=== PATIENT | female | born 1935 | race Caucasian/White ===

== ENCOUNTER 2018-09-24 10:15 | Inpatient (IN) | payer OTHER, BC ==
--- NOTE | 2018-09-24 07:40 | HP ---
Satellite [facility] - Chief Complaint Chief Complaint: left hip pain s/p gamma nail - Past Medical History Allergies/Adverse Reactions: Allergies Allergy/AdvReac Type Severity Reaction Status Date / Time Penicillins Allergy Verified 09/20/18 12:23 - Current Medications Current Medications: Home Medications Medication Instructions Recorded Cholecalciferol (Vitamin D3) 2,000 unit PO DAILY 10/05/11 [Vitamin D3] Citalopram Hydrobromide 20 mg PO DAILY 10/05/11 [Citalopram HBr] Simvastatin [Zocor] 40 mg PO HS 10/05/11 Docusate Sodium [Colace] 100 mg PO HS 09/20/18 Folic Acid 1 mg PO DAILY 09/20/18 Hydrocodone-Acetamin 5-325 mg 1 tab PO PRN PRN 09/20/18 Iomeprazole 1 each PO BID 09/20/18 Zolpidem Tartrate [Ambien] 5 mg PO HS 09/20/18 Satellite Physical Exam - Physical Examination General Appearance: Well Nourished, Well Developed, Alert & Oriented x3 ENT: Clear Lung: Normal air movement Heart: Regular rate & rhythm Extremities: Other (left hip- well healed surgical scar, + ttp, decr rom, nvi xray show failed gamma nail) Neurological: Intact, Alert, Oriented Satellite Impression/Plan - Impression/Plan Impression: left hip failed gamma nail Operative Procedure: left hip removal of hardware with courtney vs THR Date to be Performed: 09/24/18
[2018-09-24] MEDS ORDERED: CELECOXIB 200 MG CAPSULE PO ONE (10:45)
[2018-09-24] MEDS ORDERED: GABAPENTIN 300 MG CAPSULE (FP) PO ONE (10:45)
[2018-09-24] MEDS ORDERED: TRANEXAMIC ACID 1000 MG/10 ML VIAL IVPUSH ONE (10:45)
[2018-09-24] MEDS ORDERED: CEFAZOLIN 2 GM in DEXTROSE 5%-WATER - 50 ML IVPB ONE (10:45)
[2018-09-24 11:16] VITALS: BMI 30.9
[2018-09-24] MEDS ORDERED: ceFAZolin SODIUM 1 GM VIAL ONE ×3 (11:37→13:36)
[2018-09-24] MEDS ORDERED: VANCOMYCIN 1,000 MG VIAL (RESTRICTED TO ID ONLY) ONE (11:37)
[2018-09-24] MEDS ORDERED: MIDAZOLAM HCL 2 MG/2 ML SINGLE DOSE VIAL ONE (12:22)
[2018-09-24] MEDS ORDERED: LIDOCAINE 1% P/F 10 MG/ML VIAL ONE (12:22)
[2018-09-24] MEDS ORDERED: DEXAMETHASONE SOD PHOSPHATE/PF 10 MG/ML SDV ONE (12:22)
[2018-09-24] MEDS ORDERED: BUPIVACAINE HCL/PF (5 MG/ML) 30 ML VIAL IJ ONE (12:23)
[2018-09-24] MEDS ORDERED: MAGNESIUM HYDROX 2400MG/30ML ORAL SUSPENSION 30 ML CUP PO PRN (12:52)
[2018-09-24] MEDS ORDERED: MAG HYDROX/AL HYDROX/SIMETH 30 ML UNIT-DOSE CUP PO PRN (12:52)
[2018-09-24] MEDS ORDERED: LACTATED RINGERS SOLUTION 1,000 ML IV SCH (13:00)
[2018-09-24] MEDS ORDERED: SUCCINYLCHOLINE CHLORIDE 200 MG/10 ML VIAL ONE (13:17)
[2018-09-24] MEDS ORDERED: PROPOFOL 20 ML ONE (13:17)
[2018-09-24] MEDS ORDERED: ESMOLOL HCL 100,000 MCG/10 ML VIAL ONE (14:38)
[2018-09-24] MEDS ORDERED: oxyCODONE HCL 5 MG TABLET PO PRN (14:44)
[2018-09-24] MEDS ORDERED: ONDANSETRON 4 MG/2 ML VIAL IVPUSH PRN (14:44)
[2018-09-24] MEDS ORDERED: VANCOMYCIN 1,000 MG VIAL (RESTRICTED TO ID ONLY) IVPB ONE (15:05)
--- NOTE | 2018-09-24 15:41 | OP ---
Operative Note - Note: Operative Date: 09/24/18 (natalio) Pre-Operative Diagnosis: right hip failed gamma nail, nonunion Operation: right hip removal of gamma nail, conversion to makoplasty THR Post-Operative Diagnosis: Same as Pre-op Surgeon: Oskar Herrmann Statement Processor: Geovani Jose Anesthesiologist/EDGE GRINDER MACHINE: Andrea García Anesthesia: Spinal, Local Specimens Removed: femoral head, gamma nail with screws (3) Estimated Blood Loss (mls): 300 Operative Report Dictated: Yes
--- NOTE | 2018-09-24 16:00 | PN ---
Progress Note (short form) - Note Progress Note: Pt noted to have sinus arrythmia with PACs intraop and in PACU. Pt denies CP/SOB /palpitations. Otherwise hemodynamically stable. Discussed with Dr. Herrmann. Decision made to place patient on telemetry for monitoring and consult hospitalist service.
[2018-09-24] MEDS: ACETAMINOPHEN 325 MG TABLET (FP) PO SCH (18:09)
[2018-09-24] MEDS: oxyCODONE HCL 5 MG TABLET PO PRN (20:30)
--- NOTE | 2018-09-24 20:34 | OP ---
DATE OF OPERATION: 09/24/2018 PREOPERATIVE DIAGNOSIS: Nonunion left intertrochanteric hip fracture with cutout of lag screw into the acetabulum. POSTOPERATIVE DIAGNOSIS: Nonunion left intertrochanteric hip fracture with cutout of lag screw into the acetabulum. PROCEDURE: Removal of gamma nail and conversion to a left total hip replacement with robotic-assisted navigation (MAKOplasty). SURGICAL ATTENDING: Oskar Herrmann MD [employer] REPAIRER: RONNIE Ruth ANESTHESIA: Spinal and general. CLOSURE: [facility] modular Jessy femoral hip system with 195 x 17-mm stem, a +10 body, a +3 MDM femoral head, a Trident II 48-mm press-fit acetabulum. Number 1 Vicryl fascia, 0 and 2-0 subcutaneous, 3-0 V-Loc to the skin, 4-0 undyed Vicryl for the pin sites. ESTIMATED BLOOD LOSS: Approximately 200 mL COMPLICATIONS: None. CONDITION: Stable condition. DESCRIPTION OF PROCEDURE: Patient was taken to the operating room on September 24, 2018. Spinal anesthesia as well as IV sedation was administered by the anesthesiologist. IV Kefzol and TXA were administered prophylactically prior to the case. The patient was placed in the lateral decubitus position with all prominences well padded. The left hip area was prepped and draped in the usual sterile fashion. At the onset, we did not know if we were going to do a hemiarthroplasty or total hip replacement. We were going to make that decision intraoperatively based on the status of the acetabulum. First, a posterolateral approach to the hip was used. A 12-cm curved longitudinal incision to the posterior aspect of the greater trochanter was incised. Hemostasis was achieved using Bovie cautery. Sharp dissection was carried down to the level of the fascia, which resulted the entire length of the incision, spreading the fibers in the direction of origin. A Charnley retractor was placed and care was taken not to impair the sciatic nerve. A small stab incision was made over the distal locking screw of the gamma nail. That screw was removed. The tip of the prudence was easily found. The set screw was unlocked from above. The lag screw was then removed from below. Then the prudence was pulled out from above. Subperiosteal dissection was then made in the posterior aspect of the hip until the hip capsule was encountered. We stayed along the bone. The greater trochanter needed to be rongeured away to gain access where it had overgrown from the fracture. The capsule was opened. Subperiosteal dissection was done until we entered the nonunion that was present at the intertrochanteric region. All bone in this region was debrided. A corkscrew was used to deliver the head out of the acetabulum. We preserved as much of the greater trochanter that was attached. The displaced portion was retracted anteriorly, aiding access to the acetabulum. Anterior and posterior retractors were placed around the acetabulum and a thorough inspection of the acetabulum was performed. This revealed a large gouge in the superior aspect of the acetabulum, through articular cartilage, into the bone. Also centrally there was erosion as well. This necessitated then replacing the acetabulum as well. At this time, 3 stab incisions were made over the iliac crest and 3 pins were applied. The SHAYE array was applied and clamped into place. The checkpoint was malleted into the pelvis superior to the acetabulum. Circumferential debridement of the labrum was performed exposing the rim of the acetabulum. The acetabulum was then registered with the navigation device with multiple points in and around the acetabulum and confirmed adequate and excellent registration was performed by "popping the bubbles." The plan was for a 48-mm acetabulum as per the SHAYE protocol. The reamer was brought into the field and the hip was reamed to the depth using the 48-mm reamer. Excellent bleeding surface of bone was obtained. A Trident II 48 acetabular shell was then malleted into place with the appropriate orientation and version as directed by the navigation device and excellent fixation was obtained. An MDM metallic liner was then cold-welded into the acetabulum. Next, our attention was directed to the femur. The femoral shaft was prepared first by using an intramedullary reamer, which went up to 17 mm until chatter was obtained distally with the line being at approximately the tip of the greater trochanter. A 17 stem was then malleted into place to achieve good rigid fixation in the intramedullary canal. A trial reduction with a +1- body with appropriate version and +3 MDM head achieved equal limb lengths with stable to marked flexion at 90 degrees of flexion, which was stable to marked adduction and internal rotation with a positive hang test, negative telescoping, and good stability with external rotation. The trial component was then removed. The real +10 body was then cold-welded and screwed with the locking screw with the appropriate version being applied. The +3 MDM head was then cold-welded to the trunnion and the hip was reduced. Range of motion, stability, and limb lengths were as described earlier. The joint was thoroughly irrigated with antibiotic irrigation. Vancomycin powder was then applied into the hip joint. The greater trochanter and adductors were repaired to the remaining greater trochanter by the use of FiberWire suture through drill holes in the greater trochanter. Thee fascia was then closed using number 1 Vicryl interrupted suture, 0 and 2-0 subcutaneous, and yoli to the skin. The check points were removed inside the acetabulum as well as the pins in the iliac crest. They were pulse antibiotic irrigated and closed with 4-0 undyed Vicryl. Sterile Aquacel dressing was then applied. The patient was placed in the supine position. X-rays revealed excellent position of the components. Patient was awakened from anesthesia and transferred to the recovery room in stable condition. COMPLICATIONS: None. ESTIMATED BLOOD LOSS: Approximately 200 mL Dia [id number]
[2018-09-24] MEDS: CEFAZOLIN 2 GM/D5W 2 GM/50 ML ML IVPB SCH (21:30)
[2018-09-24] MEDS: ZOLPIDEM TARTRATE 5 MG TABLET PO PRN (21:32)
[2018-09-24] MEDS: ATORVASTATIN CA 20 MG TABLET (FP) PO SCH (21:32)
[2018-09-24] MEDS: SENNOSIDES/DOCUSATE COMBO (SENNA PLUS) TABLET (UD) PO SCH (21:32)
[2018-09-24] MEDS: CITALOPRAM HYDROBROMIDE 20 MG TABLET (FP) PO SCH (21:32)
[2018-09-24] MEDS ORDERED: DOCUSATE SODIUM 100 MG CAPSULE (FP) PO SCH (22:00)
[2018-09-24] MEDS ORDERED: PATIENT'S OWN MEDICATION (NON-FORMULARY) (Simvastatin [Zocor] 40 MG) PO SCH (22:00)
[2018-09-25] MEDS: ACETAMINOPHEN 325 MG TABLET (FP) PO SCH ×5 (05:17→23:16)
[2018-09-25] MEDS: CEFAZOLIN 2 GM/D5W 2 GM/50 ML ML IVPB SCH (05:18)
[2018-09-25] MEDS: oxyCODONE HCL 5 MG TABLET PO PRN ×3 (05:18→09:40)
[2018-09-25 07:09] LABS: HEMOGLOBIN 10.4 GM/dl (10.7-15.3); MCH 28.5 pg (25.7-33.7); MCHC 32.3 g/dl (32.0-36.0); MEAN CELL VOLUME 88.1 fl (80-96); MEAN PLT VOLUME 7.8 fl (7.5-11.1); PLATELET COUNT 172 K/MM3 (134-434); RBC 3.64 M/mm3 (3.60-5.2); WHITE BLOOD COUNT 13.5 K/mm3 (4.0-10.8)
[2018-09-25] MEDS: ASPIRIN 325 MG TABLET PO SCH (08:33)
--- NOTE | 2018-09-25 08:54 | PN ---
Progress Note (short form) - Note Progress Note: Ortho Pt seen and examined s/p left hip removal of gamma, conversion to THR pod #1 Selected Entries 09/25/18 08:06 Temperature 98.0 F Pulse Rate 74 Respiratory 18 Rate Blood Pressure 94/50 L Laboratory Tests 09/25/18 07:01 WBC 13.5 H Hgb 10.4 L MCV 88.1 Plt Count 172 dressing c/d/i, calf soft,nt nvi a/p PT hip precautions dvt ppx pain control d/c planning to rehab
--- NOTE | 2018-09-25 09:14 | CONSULT ---
Consultation: REQUESTING PROVIDER: Dr. Oskar Herrmann PCP: Alok Armendariz [place] CONSULT REQUEST: We have been asked to medically evaluate this patient post- operatively. HISTORY OF PRESENT ILLNESS: 83 year-old female with a PMH significant for HTN, HLD, Type II NIDDM, subclinical hyperthyroidism, postoperative anemia, depression, left hip s/p failed gamma nail, nonunion s/p right hip removal of gamma nail, conversion to makoplasty total hip replacement. REVIEW OF SYSTEMS: CONSTITUTIONAL: Absent: fever, chills, diaphoresis, generalized weakness, malaise, loss of appetite, weight change HEENT: Absent: rhinorrhea, nasal congestion, throat pain, throat swelling, difficulty swallowing, mouth swelling, ear pain, eye pain, visual changes CARDIOVASCULAR: Absent: chest pain, syncope, palpitations, irregular heart rate, lightheadedness , peripheral edema RESPIRATORY: Absent: cough, shortness of breath, dyspnea with exertion, orthopnea, wheezing, stridor, hemoptysis GASTROINTESTINAL: Absent: abdominal pain, abdominal distension, nausea, vomiting, diarrhea, constipation, melena, hematochezia GENITOURINARY: Absent: dysuria, frequency, urgency, hesitancy, hematuria, flank pain, genital pain MUSCULOSKELETAL: Absent: myalgia, arthralgia, joint swelling, back pain, neck pain SKIN: Absent: rash, itching, pallor HEMATOLOGIC/IMMUNOLOGIC: Absent: easy bleeding, easy bruising, lymphadenopathy, frequent infections ENDOCRINE: Absent: unexplained weight gain, unexplained weight loss, heat intolerance, cold intolerance NEUROLOGIC: Absent: headache, focal weakness or paresthesias, dizziness, unsteady gait, seizure, mental status changes, bladder or bowel incontinence PSYCHIATRIC: Absent: anxiety, depression, suicidal or homicidal ideation, hallucinations. PHYSICAL EXAMINATION Vital Signs - 24 hr 09/24/18 09/24/18 09/24/18 10:48 15:52 15:55 Temperature 98.6 F 97.8 F 97.8 F Pulse Rate 79 93 H 91 H Respiratory 18 14 14 Rate Blood Pressure 135/65 91/42 L 110/47 L O2 Sat by Pulse 99 99 Oximetry (%) 09/25/18 09/25/18 06:26 08:06 Temperature 98.0 F Pulse Rate 74 Respiratory 18 Rate Blood Pressure 94/50 L O2 Sat by Pulse 97 99 Oximetry (%) SUBJECTIVE: Feels weak, dizzy when she stands. Unable to fully participate in physical therapy. GENERAL: Awake, alert, and fully oriented, in no acute distress. HEAD: Normal with no signs of trauma. EYES: Pupils equal, round and reactive to light, extraocular movements intact, sclera anicteric, conjunctiva clear. No lid lag. EARS, NOSE, THROAT: Ears normal, nares patent, oropharynx clear without exudates. Moist mucous membranes. NECK: Normal range of motion, supple without lymphadenopathy, JVD, or masses. LUNGS: Breath sounds equal, clear to auscultation bilaterally. No wheezes, and no crackles. No accessory muscle use. HEART: Regular rate and rhythm, normal S1 and S2 without murmur, rub or gallop. ABDOMEN: Soft, nontender, not distended, normoactive bowel sounds, no guarding, no rebound, no masses. No hepatomegaly or splenomegaly. UPPER EXTREMITIES: 2+ pulses, warm, well-perfused. No cyanosis. No clubbing. Cap refill <2 seconds. No peripheral edema. LOWER EXTREMITIES: 2+ pulses, warm, well-perfused. No calf tenderness. No peripheral edema. Left hip surgical dressing c/d/i. No surrounding erythema, warmth, fluctuance. NEUROLOGICAL: Cranial nerves II-XII intact. Normal speech. Laboratory Results - last 24 hr 09/25/18 07:01 WBC 13.5 H RBC 3.64 Hgb 10.4 L Hct 32.0 L D MCV 88.1 MCH 28.5 MCHC 32.3 RDW 13.0 Plt Count 172 MPV 7.8 Active Medications Generic Name Dose Route Start Last Admin Trade Name Freq PRN Reason Stop Dose Admin Acetaminophen 650 mg 09/24/18 18:00 09/25/18 05:17 Tylenol - PO 09/27/18 17:59 650 mg Q6H MADY Administration Al Hydroxide/Mg Hydroxide 30 ml 09/24/18 12:52 Mylanta Oral Suspension - PO Q4H PRN DYSPEPSIA Aspirin 325 mg 09/25/18 08:00 Asa - PO DAILY@0800 [facility] Atorvastatin Calcium 20 mg 09/24/18 22:00 09/24/18 21:32 Lipitor - PO 20 mg HS MADY Administration Citalopram Hydrobromide 20 mg 09/24/18 22:00 09/24/18 21:32 Celexa - PO 20 mg HS MADY Administration Folic Acid 1 mg 09/25/18 10:00 Folic Acid - PO DAILY [facility] Magnesium Hydroxide 30 ml 09/24/18 12:52 Milk Of Magnesia - PO PRN PRN CONSTIPATION Multivitamins/Minerals/Vitamin C 1 tab 09/25/18 10:00 Tab-A-Vit - PO DAILY [facility] Ondansetron HCl 4 mg 09/24/18 14:44 Zofran Injection IVPUSH Q6H PRN NAUSEA AND/OR VOMITING Oxycodone HCl 5 mg 09/24/18 14:44 09/25/18 05:18 Roxicodone - PO 5 mg Q3H PRN Administration PAIN LEVEL 1-5 Oxycodone HCl 7.5 mg 09/24/18 14:44 Roxicodone - PO Q3H PRN PAIN LEVEL 6-10 Pantoprazole Sodium 40 mg 09/25/18 10:00 Protonix - PO DAILY [facility] Senna/Docusate Sodium 2 tablet 09/24/18 22:00 09/24/18 21:32 Pericolace - PO 2 tablet BID MADY Administration Zolpidem Tartrate 5 mg 09/24/18 22:00 09/24/18 21:32 Ambien - PO 5 mg HS PRN Administration INSOMNIA Pre op ECG SR with PVCs @70bpm QTc 440 Hgb 12.8 BUN/Cr 23/0.8 not on cardiac meds not on anti-hypertensives OR EBL 300mL LR 1500mL ASSESSMENT/PLAN: 83 year-old female with a PMH significant for HTN, HLD, Type II NIDDM, subclinical hyperthyroidism, postoperative anemia, depression, left hip s/p failed gamma nail, nonunion s/p left hip removal of gamma nail, conversion to makoplasty total hip replacement. Left total hip replacement --removal of gamma nail and conversion to makoplasty total hip replacement --POD #1 --perioperative antibiotics complete --pain management per surgery --ASA 325mg BID --protonix --bowel regimen --incentive spirometry Weakness Anemia Hypotension --not attributable to acute blood loss, has had post-operative anemia in the past --hypotension did not improve with IV fluids --discussed with Dr. Herrmann, will transfuse one unit PRBC FEN Fluids: PO intake adequate Electrolytes: replete as indicated Nutrition: regular diet DVT prophylaxis: OOB, ambulation, SCDs, TEDs, ASA 325mg daily Physical therapy Dispo: We will continue to follow the patient. Thank you for this consultative opportunity. Visit type - Emergency Visit Emergency Visit: No - New Patient This patient is new to me today: Yes Date on this admission: 09/26/18 - Critical Care Critical Care patient: No
[2018-09-25] MEDS: SENNOSIDES/DOCUSATE COMBO (SENNA PLUS) TABLET (UD) PO SCH ×2 (10:15→21:29)
[2018-09-25] MEDS: FOLIC ACID 1 MG TABLET (FP) PO SCH (10:15)
[2018-09-25] MEDS: MULTIVITAMINS (DAILY MVI) TABLET (FP) PO SCH (10:15)
[2018-09-25] MEDS: PANTOPRAZOLE 40 MG TABLET (FP) PO SCH (10:15)
[2018-09-25] MEDS ORDERED: SODIUM CHLORIDE 250 ML IV STA (12:03)
--- NOTE | 2018-09-25 12:10 | PN ---
Progress Note, Physician Chief Complaint: s/p left total hip arthroplasty under spinal anesthesia post op day one History of Present Illness: pain control by peripheral nerve blocks - Current Medication List Current Medications: Active Medications Acetaminophen (Tylenol -) 650 mg PO Q6H MADY Stop: 09/27/18 17:59 Last Admin: 09/25/18 05:17 Dose: 650 mg Al Hydroxide/Mg Hydroxide (Mylanta Oral Suspension -) 30 ml PO Q4H PRN PRN Reason: DYSPEPSIA Aspirin (Asa -) 325 mg PO DAILY@0800 [facility] Last Admin: 09/25/18 08:33 Dose: 325 mg Atorvastatin Calcium (Lipitor -) 20 mg PO HS [facility] Last Admin: 09/24/18 21:32 Dose: 20 mg Citalopram Hydrobromide (Celexa -) 20 mg PO HS [facility] Last Admin: 09/24/18 21:32 Dose: 20 mg Folic Acid (Folic Acid -) 1 mg PO DAILY [facility] Last Admin: 09/25/18 10:15 Dose: 1 mg Sodium Chloride (Normal Saline -) 250 mls @ 250 mls/hr IV ASDIR STA Stop: 09/25/18 13:02 Sodium Chloride (Normal Saline -) 1,000 mls @ 100 mls/hr IV ASDIR MADY Stop: 09/25/18 22:14 Magnesium Hydroxide (Milk Of Magnesia -) 30 ml PO PRN PRN PRN Reason: CONSTIPATION Multivitamins/Minerals/Vitamin C (Tab-A-Vit -) 1 tab PO DAILY [facility] Last Admin: 09/25/18 10:15 Dose: 1 tab Ondansetron HCl (Zofran Injection) 4 mg IVPUSH Q6H PRN PRN Reason: NAUSEA AND/OR VOMITING Oxycodone HCl (Roxicodone -) 5 mg PO Q3H PRN PRN Reason: PAIN LEVEL 1-5 Last Admin: 09/25/18 09:40 Dose: 5 mg Pantoprazole Sodium (Protonix -) 40 mg PO DAILY [facility] Last Admin: 09/25/18 10:15 Dose: 40 mg Senna/Docusate Sodium (Pericolace -) 2 tablet PO BID [facility] Last Admin: 09/25/18 10:15 Dose: 2 tablet Zolpidem Tartrate (Ambien -) 5 mg PO HS PRN PRN Reason: INSOMNIA Last Admin: 09/24/18 21:32 Dose: 5 mg - Objective Vital Signs: Vital Signs Temperature 98.0 F 09/25/18 10:00 Pulse Rate 55 L 09/25/18 10:00 Respiratory Rate 20 09/25/18 10:00 Blood Pressure 104/43 L 09/25/18 10:00 O2 Sat by Pulse Oximetry (%) 99 09/25/18 08:06 Constitutional: Yes: Well Nourished, Mild Distress Cardiovascular: Yes: WNL Respiratory: Yes: WNL Gastrointestinal: Yes: WNL (feeling light headed) Labs: CBC, BMP 09/25/18 07:01 Assessment/Plan No anesthetic complications, feeling light headed, orthostatic check positive, will leave in the hands of the hospitalist to treat. otherwise dept of anesthesia will sign off care
[2018-09-25] MEDS ORDERED: SODIUM CHLORIDE 1,000 ML IV SCH (12:15)
--- NOTE | 2018-09-25 12:29 | EKG ---
Test Reason : Blood Pressure : / mmHG Vent. Rate : 078 BPM Atrial Rate : 078 BPM P-R Int : 146 ms QRS Dur : 108 ms QT Int : 388 ms P-R-T Axes : 083 -12 047 degrees QTc Int : 442 ms POOR DATA QUALITY, INTERPRETATION MAY BE ADVERSELY AFFECTED SINUS RHYTHM WITH OCCASIONAL PREMATURE VENTRICULAR COMPLEXES INCOMPLETE RIGHT BUNDLE BRANCH BLOCK POSSIBLE INFERIOR INFARCT (CITED ON OR BEFORE 20-SEP-2018) ABNORMAL ECG WHEN COMPARED WITH ECG OF 20-SEP-2018 12:48, NO SIGNIFICANT CHANGE WAS FOUND Confirmed by BOB BERRIOS MD ([id number]) on 09/25/2018 12:29:05 PM Referred By: Oskar Herrmann Confirmed By:BOB BERRIOS MD
[2018-09-25] MEDS ORDERED: SODIUM CHLORIDE 500 ML IV STA (14:58)
[2018-09-25 15:33] LABS: HEMATOCRIT 28.6 % (32.4-45.2); HEMOGLOBIN 9.3 GM/dl (10.7-15.3); MCHC 32.6 g/dl (32.0-36.0); MEAN PLT VOLUME 7.9 fl (7.5-11.1); PLATELET COUNT 133 K/MM3 (134-434); RBC 3.22 M/mm3 (3.60-5.2); RDW 13.2 % (11.6-15.6); WHITE BLOOD COUNT 11.3 K/mm3 (4.0-10.8)
[2018-09-25] MEDS: INSULIN SLIDING SCALE (NOVOLOG) 1 VIAL SQ SCH ×2 (16:52→23:09)
[2018-09-25] MEDS ORDERED: FUROSEMIDE 40 MG/4 ML INJECTABLE VIAL IVPUSH ONE (19:54)
[2018-09-25] MEDS: ATORVASTATIN CA 20 MG TABLET (FP) PO SCH (21:29)
[2018-09-25] MEDS: CITALOPRAM HYDROBROMIDE 20 MG TABLET (FP) PO SCH (21:29)
[2018-09-26] MEDS ORDERED: FUROSEMIDE 40 MG/4 ML INJECTABLE VIAL ONE (01:10)
[2018-09-26] MEDS: ZOLPIDEM TARTRATE 5 MG TABLET PO PRN ×2 (01:13→21:27)
[2018-09-26] MEDS: ACETAMINOPHEN 325 MG TABLET (FP) PO SCH ×3 (06:49→17:34)
[2018-09-26] MEDS: INSULIN SLIDING SCALE (NOVOLOG) 1 VIAL SQ SCH ×4 (06:52→21:25)
[2018-09-26 08:13] LABS: HEMATOCRIT 29.4 % (32.4-45.2); HEMOGLOBIN 10.2 GM/dl (10.7-15.3); MCH 30.8 pg (25.7-33.7); MCHC 34.7 g/dl (32.0-36.0); MEAN CELL VOLUME 88.8 fl (80-96); MEAN PLT VOLUME 8.4 fl (7.5-11.1); PLATELET COUNT 114 K/MM3 (134-434); RBC 3.31 M/mm3 (3.60-5.2); RDW 12.9 % (11.6-15.6); WHITE BLOOD COUNT 10.4 K/mm3 (4.0-10.8)
--- NOTE | 2018-09-26 08:38 | PN ---
Progress Note (short form) - Note Progress Note: Ortho Pt seen and examined s/p left hip removal of gamma, conversion to THR pod #2- received 1 unit prbcs last night, c/o fatigue Selected Entries 09/26/18 06:02 Temperature 98.3 F Pulse Rate 81 Respiratory 18 Rate Blood Pressure 120/50 L Laboratory Tests 09/26/18 07:20 WBC 10.4 Hgb 10.2 L Hct 29.4 L Plt Count 114 L dressing c/d/i, calf soft,nt nvi a/p f/u cbc cardio consult PT hip precautions dvt ppx pain control d/c planning to rehab
[2018-09-26] MEDS: PANTOPRAZOLE 40 MG TABLET (FP) PO SCH (09:50)
[2018-09-26] MEDS: ASPIRIN 325 MG TABLET PO SCH (09:50)
[2018-09-26] MEDS: SENNOSIDES/DOCUSATE COMBO (SENNA PLUS) TABLET (UD) PO SCH ×2 (09:50→21:26)
[2018-09-26] MEDS: FOLIC ACID 1 MG TABLET (FP) PO SCH (09:51)
[2018-09-26] MEDS: MULTIVITAMINS (DAILY MVI) TABLET (FP) PO SCH (09:51)
--- NOTE | 2018-09-26 09:53 | PN ---
Physical Exam: SUBJECTIVE: Patient seen and examined. Feels has more energy, pain well-managed. OBJECTIVE: Vital Signs Period Temp Pulse Resp BP Sys/Bundy Pulse Ox Last 24 Hr 98.0 F-98.9 F 55-92 18-20 86-131/37-59 95-99 GENERAL: Awake, alert, and fully oriented, in no acute distress. HEAD: Normal with no signs of trauma. LUNGS: Breath sounds equal, clear to auscultation bilaterally. No wheezes, and no crackles. No accessory muscle use. HEART: Regular rate and rhythm, normal S1 and S2 ABDOMEN: Soft, nontender, not distended UPPER EXTREMITIES: 2+ pulses, warm, well-perfused. No cyanosis. No clubbing. Cap refill <2 seconds. No peripheral edema. LOWER EXTREMITIES: 2+ pulses, warm, well-perfused. No calf tenderness. No peripheral edema. Left hip surgical dressing c/d/i. No surrounding erythema, warmth, fluctuance. NEUROLOGICAL: Cranial nerves II-XII intact. Normal speech. Laboratory Results - last 24 hr 09/25/18 09/25/18 09/25/18 15:10 16:48 18:16 WBC 11.3 H RBC 3.22 L Hgb 9.3 L Hct 28.6 L MCV 89.0 MCH 29.0 MCHC 32.6 RDW 13.2 Plt Count 133 L MPV 7.9 POC Glucometer 175 Blood Type A POSITIVE Antibody Screen Negative Crossmatch See Detail 09/25/18 09/25/18 09/26/18 18:16 22:13 06:44 WBC RBC Hgb Hct MCV MCH MCHC RDW Plt Count MPV POC Glucometer 135 140 Blood Type A POSITIVE Antibody Screen Crossmatch 09/26/18 07:20 WBC 10.4 RBC 3.31 L Hgb 10.2 L Hct 29.4 L MCV 88.8 MCH 30.8 MCHC 34.7 RDW 12.9 Plt Count 114 L MPV 8.4 POC Glucometer Blood Type Antibody Screen Crossmatch Active Medications Generic Name Dose Route Start Last Admin Trade Name Freq PRN Reason Stop Dose Admin Acetaminophen 650 mg 09/24/18 18:00 09/26/18 06:49 Tylenol - PO 09/27/18 17:59 650 mg Q6H MADY Administration Al Hydroxide/Mg Hydroxide 30 ml 09/24/18 12:52 Mylanta Oral Suspension - PO Q4H PRN DYSPEPSIA Aspirin 325 mg 09/25/18 08:00 09/26/18 09:50 Asa - PO 325 mg DAILY@0800 MADY Administration Atorvastatin Calcium 20 mg 09/24/18 22:00 09/25/18 21:29 Lipitor - PO 20 mg HS MADY Administration Citalopram Hydrobromide 20 mg 09/24/18 22:00 09/25/18 21:29 Celexa - PO 20 mg HS MADY Administration Folic Acid 1 mg 09/25/18 10:00 09/26/18 09:51 Folic Acid - PO 1 mg DAILY MADY Administration Insulin Aspart 1 vial 09/25/18 16:30 09/26/18 06:52 Novolog Vial Sliding Scale - SQ Not Given ACHS [facility] Protocol Magnesium Hydroxide 30 ml 09/24/18 12:52 Milk Of Magnesia - PO PRN PRN CONSTIPATION Multivitamins/Minerals/Vitamin C 1 tab 09/25/18 10:00 09/26/18 09:51 Tab-A-Vit - PO 1 tab DAILY [facility] Administration Ondansetron HCl 4 mg 09/24/18 14:44 Zofran Injection IVPUSH Q6H PRN NAUSEA AND/OR VOMITING Pantoprazole Sodium 40 mg 09/25/18 10:00 09/26/18 09:50 Protonix - PO 40 mg DAILY MADY Administration Senna/Docusate Sodium 2 tablet 09/24/18 22:00 09/26/18 09:50 Pericolace - PO 2 tablet BID MADY Administration Zolpidem Tartrate 5 mg 09/24/18 22:00 09/26/18 01:13 Ambien - PO 5 mg HS PRN Administration INSOMNIA ASSESSMENT/PLAN Pre op ECG SR with PVCs @70bpm QTc 440 Hgb 12.8 BUN/Cr 23/0.8 not on cardiac meds not on anti-hypertensives OR EBL 300mL LR 1500mL ASSESSMENT/PLAN: 83 year-old female with a PMH significant for HTN, HLD, Type II NIDDM, subclinical hyperthyroidism, postoperative anemia, depression, left hip s/p failed gamma nail, nonunion s/p left hip removal of gamma nail, conversion to makoplasty total hip replacement. Left total hip replacement --removal of gamma nail and conversion to makoplasty total hip replacement --POD #2 --perioperative antibiotics complete --pain management per surgery --ASA 325mg BID --protonix --bowel regimen --incentive spirometry Weakness Anemia Hypotension --transfused 1U PRBC on 09/25, good response Hgb 9.3-->10.8 --clinically improved, BP stable, walked 100 feet with PT, asymptomatic with ambulation FEN Fluids: PO intake adequate Electrolytes: replete as indicated Nutrition: regular diet DVT prophylaxis: OOB, ambulation, SCDs, TEDs, ASA 325mg daily Physical therapy Dispo: We will continue to follow the patient. Thank you for this consultative opportunity. Visit type - Emergency Visit Emergency Visit: No - New Patient This patient is new to me today: No - Critical Care Critical Care patient: No
--- NOTE | 2018-09-26 14:07 | PATH ---
Surgical Pathology Report Patient Name: FRANK TOTH Med. Rec. #: [id number] /Age/Gender: 1935 (Age: 83) / F Account: [id number] Location: [facility] MED-SURG Taken: 09/24/2018 Received: 09/24/2018 Reported: 09/26/2018 Physicians: Oskar Herrmann M.D. Specimen(s) Received A: LEFT FEMORAL HEAD B: LEFT HIP EXPLANT Clinical History Osteoarthritis left hip Final Diagnosis A. BONE, FEMORAL HEAD, LEFT, TOTAL HIP REPLACEMENT MAKOPASTY: BONE WITH DEGENERATIVE JOINT DISEASE. B. HIP EXPLANT, LEFT, REMOVAL: SURGICAL HARDWARE. MACROSCOPIC DIAGNOSIS. Electronically Signed Demi Delarosa M.D. Gross Description A. Received in formalin, labeled "left femoral head," is a 4.2 x 4.2 x 4.0 cm. femoral head with no femoral neck attached. The margin of resection is jagged with a focal defect. No areas of eburnation are identified. The articular surface is caldwell-yellow and focally granular. The underlying trabecular bone is yellow and hard. A sales and service representative section is submitted in one cassette, following decalcification. B. Received fresh labeled "left hip explant" is an 18 cm in length desouza metallic prudence. Also received in the same container are 3 desouza metallic screws ranging from 1.7-9.5 cm in length. No soft tissue is present. No sections are submitted, gross only. /09/25/2018 saudi09/25/2018
--- NOTE | 2018-09-26 14:36 | CON.CARD ---
Consult Consult Specialty:: Cardiology Referred by:: Medicine Reason for Consultation:: abnormal EKG - History of Present Illness Chief Complaint: hip replacement History of Present Illness: 83F h/o HTN, HLD, DM, subclinical hyperthyroidism, postoperative anemia, depression, left hip s/p failed gamma nail, nonunion s/p right hip removal of gamma nail, conversion to makoplasty total hip replacement, now POD 2. EKG with PVCs. No chest pain, palps, dizziness, lightheadedness. - Alcohol/Substance Use Hx Alcohol Use: Yes (SOCIALLY) - Smoking History Smoking history: Never smoked Have you smoked in the past 12 months: No Home Medications - Allergies Allergies/Adverse Reactions: Allergies Allergy/AdvReac Type Severity Reaction Status Date / Time Penicillins Allergy Verified 09/20/18 12:23 - Home Medications Home Medications: Ambulatory Orders Cholecalciferol (Vitamin D3) [Vitamin D3] 2,000 unit PO DAILY 10/05/11 Citalopram Hydrobromide [Citalopram HBr] 20 mg PO HS 10/05/11 Simvastatin [Zocor] 40 mg PO HS 10/05/11 Docusate Sodium [Colace] 100 mg PO HS 09/20/18 Folic Acid 1 mg PO DAILY 09/20/18 Hydrocodone-Acetamin 5-325 mg 1 tab PO PRN PRN 09/20/18 Iomeprazole 1 each PO BID 09/20/18 Zolpidem Tartrate [Ambien] 5 mg PO HS 09/20/18 Family Disease History - Family Disease History Family History: Unremarkable Review of Systems - Review of Systems Constitutional: reports: No Symptoms Eyes: reports: No Symptoms HENT: reports: No Symptoms Neck: reports: No Symptoms Cardiovascular: reports: No Symptoms Respiratory: reports: No Symptoms Gastrointestinal: reports: No Symptoms Genitourinary: reports: No Symptoms Musculoskeletal: reports: No Symptoms Integumentary: reports: No Symptoms Neurological: reports: No Symptoms Endocrine: reports: No Symptoms Hematology/Lymphatic: reports: No Symptoms Psychiatric: reports: No Symptoms Vital Signs: Vital Signs Temperature 98.6 F 09/26/18 14:12 Pulse Rate 74 09/26/18 14:12 Respiratory Rate 18 09/26/18 14:12 Blood Pressure 110/37 L 09/26/18 14:12 O2 Sat by Pulse Oximetry (%) 96 09/26/18 14:12 Constitutional: Yes: Well Nourished, No Distress, Calm Eyes: Yes: Conjunctiva Clear, EOM Intact HENT: Yes: Atraumatic, Normocephalic Neck: Yes: Supple, Trachea Midline Respiratory: Yes: Regular, CTA Bilaterally Gastrointestinal: Yes: Normal Bowel Sounds, Soft Cardiovascular: Yes: Regular Rate and Rhythm Heart Sounds: Yes: S1, S2 Murmur: No: Systolic Murmur Musculoskeletal: No: Back Pain Extremities: No: Cold Edema: No Peripheral Pulses WNL: Yes Peripheral Pulses: 2+ Left Doralis Pedis, 2+ Right Dorsalis Pedis Integumentary: No: Jaundice Neurological: Yes: Alert, Oriented Psychiatric: No: Agitated - Other Data Labs, Other Data: CBC, BMP 09/26/18 07:20 Assessment/Plan EKG: sinus, IRBBB, PVC CXR: no acute process tele: sinus, PVCs Abnormal EKG, PVCs - per patient no prior cardiac hx - asymptomatic - will check echo, if benign findings no further cardiac testing as inpatient post op hip surgery, anemia - received PRBCs - manage per ortho HTN - not on meds, BP stable - monitor HLD - cont statin DM - manage per primary
[2018-09-26 14:55] LABS: ALBUMIN 2.4 g/dl (3.4-5.0); ALK PHOS 54 U/L (45-117); ANION GAP 5 MMOL/L (8-16); BILIRUBIN,TOTAL 0.8 mg/dl (0.2-1); BLOOD UREA NITROGEN 14 mg/dl (7-18); CALCIUM 8.2 mg/dl (8.5-10); CHLORIDE 106 mmol/L (98-107); CO2 28 mmol/L (21-32); CREATININE 0.5 mg/dl (0.55-1.3); GLUCOSE,RANDOM 136 mg/dl (74-106); MAGNESIUM 1.6 mg/dL (1.8-2.4); POTASSIUM 3.8 mmol/L (3.5-5.1); SGOT/AST 12 U/L (15-37); SGPT/ALT 8 U/L (13-61); SODIUM 139 mmol/L (136-145); TOT PROT 4.7 g/dl (6.4-8.2)
[2018-09-26] MEDS: ATORVASTATIN CA 20 MG TABLET (FP) PO SCH (21:25)
[2018-09-26] MEDS: CITALOPRAM HYDROBROMIDE 20 MG TABLET (FP) PO SCH (21:25)
[2018-09-27] MEDS: ACETAMINOPHEN 325 MG TABLET (FP) PO SCH ×3 (00:53→11:56)
[2018-09-27 06:29] VITALS: TEMP 98.3
[2018-09-27] MEDS: INSULIN SLIDING SCALE (NOVOLOG) 1 VIAL SQ SCH ×2 (06:59→11:51)
[2018-09-27] MEDS: ASPIRIN 325 MG TABLET PO SCH (07:45)
[2018-09-27 08:05] VITALS: PULSE 62
[2018-09-27] MEDS: SENNOSIDES/DOCUSATE COMBO (SENNA PLUS) TABLET (UD) PO SCH ×2 (09:16→09:19)
[2018-09-27] MEDS: PANTOPRAZOLE 40 MG TABLET (FP) PO SCH (09:16)
[2018-09-27] MEDS: MULTIVITAMINS (DAILY MVI) TABLET (FP) PO SCH (09:16)
[2018-09-27] MEDS: FOLIC ACID 1 MG TABLET (FP) PO SCH (09:16)
--- NOTE | 2018-09-27 09:16 | PN ---
Progress Note (short form) - Note Progress Note: Ortho Pt seen and examined s/p left hip removal of gamma, conversion to THR pod #3- feeling much better today Selected Entries 09/27/18 06:00 Temperature 98.3 F Pulse Rate 84 Respiratory 18 Rate Blood Pressure 126/41 L Laboratory Tests 09/26/18 07:20 WBC 10.4 Hgb 10.2 L Hct 29.4 L Plt Count 114 L dressing c/d/i, calf soft,nt nvi a/p as per cardio echo pending if echo normal ok to d/c to rehab today PT hip precautions dvt ppx pain control d/c planning to rehab
--- NOTE | 2018-09-27 10:42 | ECHO ---
Name: FRANK TOTH Exam:Adult Echocardiogram Study Date: 09/27/2018 08:32 AM Age: 83 yrs Reason For Study: LV Function Height: 64 in Weight: 185 lb BSA: 1.9 m2 MMode/2D Measurements & Calculations IVSd: 1.0 cm Ao root diam: 3.1 cm LVIDd: 4.3 cm LA dimension: 4.3 cm LVIDs: 2.8 cm LVPWd: 1.1 cm EDV(Teich): 81.1 ml LVOT diam: 2.1 cm ESV(Teich): 29.6 ml Doppler Measurements & Calculations MV E max lexie: 91.8 cm/sec Ao V2 max: 148.0 cm/sec MV A max lexie: 88.8 cm/sec Ao max P.8 mmHg MV E/A: 1.0 Ao V2 mean: 105.5 cm/sec Ao mean P.1 mmHg Ao V2 VTI: 34.2 cm HANNAH(I,D): 2.1 cm2 HANNAH(V,D): 2.1 cm2 LV V1 max P.5 mmHg SV(LVOT): 70.7 ml LV V1 mean P.9 mmHg LV V1 max: 93.0 cm/sec LV V1 mean: 65.6 cm/sec LV V1 VTI: 20.9 cm Procedure A two-dimensional transthoracic echocardiogram with color flow and Doppler was performed. Left Ventricle The left ventricular size, thickness and function are normal. The left ventricular ejection fraction is normal. Left Ventricular Filling pattern is normal for age. The left ventricular wall motion is brooke l. Right Ventricle The right ventricle is normal in size and function. Atria The left atrium is mildly dilated. The right atrium is mildly dilated. Mitral Valve There is mild mitral valve thickening. There is no mitral valve stenosis. There is moderate mitral regurgitation. Tricuspid Valve There is mild tricuspid valve thickening. There is no tricuspid stenosis. There was insufficient TR d etected to calculate RV systolic pressure. Aortic Valve The aortic valve is trileaflet. There is mild aortic valve thickening. There is mild aortic sclerosis .;. No hemodynamically significant valvular aortic stenosis. Mild aortic regurgitation. Pulmonic Valve The pulmonic valve is not well visualized. Great Vessels The aortic root is normal size. Pericardium/Pleura There is no pericardial effusion. Interpretation Summary The left ventricular size, thickness and function are normal The left ventricular ejection fraction is normal. The left atrium is mildly dilated. The right atrium is mildly dilated. The aortic valve is trileaflet. There is mild aortic valve thickening. There is mild aortic sclerosis.; There is moderate mitral regurgitation. Mild aortic regurgitation. The left ventricular wall motion is normal. Left Ventricular Filling pattern is normal for age. There was insufficient TR detected to calculate RV systolic pressure. MD Inocencio Jennings 09/27/2018 10:41 AM
[2018-09-27 11:26] VITALS: BP 100/38
--- NOTE | 2018-09-27 11:30 | DS ---
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 Pain medication was sent into your pharmacy. Apply Graduated Compression Stockings (TEDs) to both lower extremities- remove daily for hygiene ONLY Apply Sequential Compression Device (SCDs) to both Lower extremities remove for PT and hygiene ONLY Apply cold packs to affected area for 15 minutes every 2 hours. Physical Therapist will come to your home for the first 5 days. You will be set up with outpatient PT at your first post-operative visit. Patient may ambulate as tolerated-encourage self care (at least every 2-3 hours while awake) with walker or cane Maintain Aquacel (waterproof) dressing to operative wound (will be removed by surgeon at first office visit) Shower with Aquacel dressing in place-if Aquacel integrity compromised, remove and apply dry sterile dressing and notify Orthopedist. DO NOT SHOWER unless Orthopedists approves without Aquacel dressing CONTACT THE OFFICE FOR ANY CHANGE IN YOUR CONDITION (for example-fever greater than 102 degrees, excessive bleeding from operative site, purulent drainage, severe swelling or pain) GO TO THE EMERGENCY ROOM IF THERE IS A MEDICAL EMERGENCY Hip Precautions: * Keep a rolled towel under affected heel while in bed or chair (to keep knee in extension) * Dependent upon approach: * Posterior - do not cross legs; do not sit on low chairs or toilets. * If you have any questions, please do not hesitate to call the office - [phone]. Referrals: Oskar Herrmann MD [Staff Physician] - Disposition: VNS/HOME HEALTH CARE - Home Medications Comprehensive Discharge Medication List: Ambulatory Orders Cholecalciferol (Vitamin D3) [Vitamin D3] 2,000 unit PO DAILY 10/05/11 Citalopram Hydrobromide [Citalopram HBr] 20 mg PO HS 10/05/11 Simvastatin [Zocor] 40 mg PO HS 10/05/11 Docusate Sodium [Colace] 100 mg PO HS 09/20/18 Folic Acid 1 mg PO DAILY 09/20/18 Iomeprazole 1 each PO BID 09/20/18 Zolpidem Tartrate [Ambien] 5 mg PO HS 09/20/18 Aspirin [ASA -] 325 mg PO DAILY@0800 tablet 09/27/18
--- NOTE | 2018-09-27 11:57 | PN ---
Physical Exam: SUBJECTIVE: Patient seen and examined oob to chair. OBJECTIVE: Vital Signs Period Temp Pulse Resp BP Sys/Bundy Pulse Ox Last 24 Hr 98.3 F-99.8 F 62-85 17-20 104-131/37-50 93-98 GENERAL: Awake, alert, and fully oriented, in no acute distress. HEAD: Normal with no signs of trauma. LUNGS: Breath sounds equal, clear to auscultation bilaterally. No wheezes, and no crackles. No accessory muscle use. HEART: Regular rate and rhythm, normal S1 and S2 ABDOMEN: Soft, nontender, not distended UPPER EXTREMITIES: 2+ pulses, warm, well-perfused. No cyanosis. No clubbing. Cap refill <2 seconds. No peripheral edema. LOWER EXTREMITIES: 2+ pulses, warm, well-perfused. No calf tenderness. No peripheral edema. Left hip surgical dressing c/d/i. No surrounding erythema, warmth, fluctuance. NEUROLOGICAL: Cranial nerves II-XII intact. Normal speech. Laboratory Results - last 24 hr 09/26/18 09/26/18 09/26/18 07:20 11:55 17:10 Sodium 139 Potassium 3.8 Chloride 106 Carbon Dioxide 28 Anion Gap 5 L BUN 14 Creatinine 0.5 L Creat Clearance w eGFR 118.42 POC Glucometer 107 116 Random Glucose 136 H Calcium 8.2 L Magnesium 1.6 L Total Bilirubin 0.8 AST 12 L ALT 8 L Alkaline Phosphatase 54 D Total Protein 4.7 L Albumin 2.4 L 09/27/18 06:57 Sodium Potassium Chloride Carbon Dioxide Anion Gap BUN Creatinine Creat Clearance w eGFR POC Glucometer 121 Random Glucose Calcium Magnesium Total Bilirubin AST ALT Alkaline Phosphatase Total Protein Albumin Active Medications Generic Name Dose Route Start Last Admin Trade Name Freq PRN Reason Stop Dose Admin Acetaminophen 650 mg 09/24/18 18:00 09/27/18 06:51 Tylenol - PO 09/27/18 17:59 650 mg Q6H MADY Administration Al Hydroxide/Mg Hydroxide 30 ml 09/24/18 12:52 Mylanta Oral Suspension - PO Q4H PRN DYSPEPSIA Aspirin 325 mg 09/25/18 08:00 09/27/18 07:45 Asa - PO 325 mg DAILY@0800 MADY Administration Atorvastatin Calcium 20 mg 09/24/18 22:00 09/26/18 21:25 Lipitor - PO 20 mg HS MADY Administration Citalopram Hydrobromide 20 mg 09/24/18 22:00 09/26/18 21:25 Celexa - PO 20 mg HS MADY Administration Folic Acid 1 mg 09/25/18 10:00 09/27/18 09:16 Folic Acid - PO 1 mg DAILY MADY Administration Insulin Aspart 1 vial 09/25/18 16:30 09/27/18 06:59 Novolog Vial Sliding Scale - SQ Not Given ACHS [facility] Protocol Magnesium Hydroxide 30 ml 09/24/18 12:52 Milk Of Magnesia - PO PRN PRN CONSTIPATION Multivitamins/Minerals/Vitamin C 1 tab 09/25/18 10:00 09/27/18 09:16 Tab-A-Vit - PO 1 tab DAILY MADY Administration Ondansetron HCl 4 mg 09/24/18 14:44 Zofran Injection IVPUSH Q6H PRN NAUSEA AND/OR VOMITING Pantoprazole Sodium 40 mg 09/25/18 10:00 09/27/18 09:16 Protonix - PO 40 mg DAILY MADY Administration Senna/Docusate Sodium 2 tablet 09/24/18 22:00 09/27/18 09:19 Pericolace - PO Not Given BID [facility] Zolpidem Tartrate 5 mg 09/24/18 22:00 09/26/18 21:27 Ambien - PO 5 mg HS PRN Administration INSOMNIA Pre op ECG SR with PVCs @70bpm QTc 440 Hgb 12.8 BUN/Cr 23/0.8 not on cardiac meds not on anti-hypertensives OR EBL 300mL LR 1500mL ASSESSMENT/PLAN: 83 year-old female with a PMH significant for HTN, HLD, Type II NIDDM, subclinical hyperthyroidism, postoperative anemia, depression, left hip s/p failed gamma nail, nonunion s/p left hip removal of gamma nail, conversion to makoplasty total hip replacement. Left total hip replacement --removal of gamma nail and conversion to makoplasty total hip replacement --POD #2 --perioperative antibiotics complete --pain management per surgery --ASA 325mg BID --protonix --bowel regimen --incentive spirometry Weakness Anemia Hypotension --transfused 1U PRBC on 09/25, good response Hgb 9.3-->10.8 --clinically improved, BP stable, walked 100 feet with PT, asymptomatic with ambulation Sinus arrhythmia --telemetry monitoring no events --serial ECGs shows sinus rhythm with occasional PVCs --Echo: LV normal; RV normal; BLAE; moderate MR; mild AI --seen and evaluated by cardiology FEN Fluids: PO intake adequate Electrolytes: replete as indicated Nutrition: regular diet DVT prophylaxis: OOB, ambulation, SCDs, TEDs, ASA 325mg daily Physical therapy Dispo: Patient is being discharged today by surgical service. Thank you for this consultative opportunity. Visit type - Emergency Visit Emergency Visit: No - New Patient This patient is new to me today: No - Critical Care Critical Care patient: No
== END 2018-09-27 13:28 | DRG 470 ==
LOC: FM/S 10:15
PROVIDERS: ADMIT Orthopaedic Surgery; ATTEND Orthopaedic Surgery
PROC: 0QB70ZZ Excision of Left Upper Femur, Open Approach (ICD-10-PCS; 2018-09-24)
PROC: 8E0W0CZ Robotic Assisted Procedure of Trunk Region, Open Approach (ICD-10-PCS; 2018-09-24)
PROC: 0SRB0JA Replacement of Left Hip Joint with Synthetic Substitute, Uncemented, Open Approach (ICD-10-PCS; principal; 2018-09-24 13:46)
PROC: 0SPB04Z Removal of Internal Fixation Device from Left Hip Joint, Open Approach (ICD-10-PCS; 2018-09-24 13:46)
PROC: 30233N1 Transfusion of Nonautologous Red Blood Cells into Peripheral Vein, Percutaneous Approach (ICD-10-PCS; 2018-09-25)
DX: T84.091A Other mechanical complication of internal left hip prosthesis, initial encounter (principal); D62 Acute posthemorrhagic anemia; Y83.8 Other surgical procedures as the cause of abnormal reaction of the patient, or of later complication, without mention of misadventure at the time of the procedure; I10 Essential (primary) hypertension; E78.5 Hyperlipidemia, unspecified; E05.90 Thyrotoxicosis, unspecified without thyrotoxic crisis or storm; I95.9 Hypotension, unspecified; F32.9 Major depressive disorder, single episode, unspecified; E11.9 Type 2 diabetes mellitus without complications; R94.31 Abnormal electrocardiogram [ECG] [EKG]
CPT/HCPCS: 36415; 36430; 71045-TC-FY; 73502-TC-LT-FY; 73700-TC-RT; 80053; 81003; 81015; 82962; 83735; 85025; 85027; 85610; 85730; 86850; 86900; 86901; 86922; 88300-TC; 88305-TC; 88311-TC; 93005; 93306-TC; 94760; 97116-GP; 97163-GP; J7030; P9038; P9058

== ENCOUNTER 2020-09-11 16:56 | Emergency (ER) | payer OTHER, BC ==
[2020-09-11] MEDS ORDERED: ACETAMINOPHEN 1000 MG/100 ML VIAL (NON FORMULARY) IVPB ONE (17:45)
[2020-09-11 18:20] VITALS: BP 179/80; PULSE 88; TEMP 98.6; BMI 32.5
[2020-09-11 18:40] LABS: INR 1.12 (0.82-1.09); PROTHROMBIN TIME (PATIENT) 12.4 SEC (10.2-13.0)
[2020-09-11 18:43] LABS: BASO % 0.9 % (0-2.0); EOS % 1.4 % (0-4.5); HEMATOCRIT 45.5 % (32.4-45.2); LYMPH % 19.6 % (8-40); MCH 29.2 pg (25.7-33.7); MEAN CELL VOLUME 88.5 fl (80-96); MEAN PLT VOLUME 8.6 fl (7.5-11.1); MONO % 6.4 % (3.8-10.2); NEUT % 71.7 % (42.8-82.8); PLATELET COUNT 186 K/MM3 (134-434); RBC 5.14 M/mm3 (3.60-5.2); RDW 13.1 % (11.6-15.6); WHITE BLOOD COUNT 8.4 K/mm3 (4.0-10.8)
[2020-09-11] MEDS ORDERED: ACETAMINOPHEN INJECTION 100 ML IVPB ONE (18:50)
[2020-09-11 18:57] LABS: ALBUMIN 3.7 g/dl (3.4-5.0); BILIRUBIN,TOTAL 0.8 mg/dl (0.2-1); CALCIUM 9.5 mg/dl (8.5-10); CREATININE 0.7 mg/dl (0.55-1.3); MAGNESIUM 1.9 mg/dL (1.8-2.4); POTASSIUM 4.3 mmol/L (3.5-5.1); TOT PROT 6.6 g/dl (6.4-8.2)
[2020-09-11 19:33] LABS: URINE APPEARANCE CLEAR; URINE BILIRUBIN NEGATIVE (NEGATIVE); URINE COLOR YELLOW; URINE GLUCOSE (UA) NEGATIVE (NEGATIVE); URINE KETONE NEGATIVE (NEGATIVE); URINE PROTEIN NEGATIVE (NEGATIVE)
[2020-09-11 19:34] LABS: URINE BACTERIA FEW /hpf (NEGATIVE); URINE LEUK ESTERASE 1+ (NEGATIVE); URINE NITRITE NEGATIVE (NEGATIVE)
[2020-09-13 16:20] LABS: EPI CELLS FEW /HPF
== END 2020-09-11 21:55 | disposition home or self-care (01) ==
LOC: FER 16:56
PROC: 3E033GC Introduction of Other Therapeutic Substance into Peripheral Vein, Percutaneous Approach (ICD-10-PCS; principal; 2020-09-11)
DX: K46.9 Unspecified abdominal hernia without obstruction or gangrene (principal)
CPT/HCPCS: 36415; 74177-TC; 80053; 81003; 83605; 83735; 85025; 85610; 87086; 99285-25; J0131; Q9967

== ENCOUNTER 2023-02-15 16:59 | Emergency (ER) | payer OTHER, BC ==
[2023-02-15 17:07] VITALS: BP 128/81; PULSE 89; RESP 18; TEMP 98.6; BMI 30.9
== END 2023-02-15 18:53 | disposition home or self-care (01) ==
LOC: FER 16:59
DX: R68.84 Jaw pain (principal); S00.83XA Contusion of other part of head, initial encounter; S09.90XA Unspecified injury of head, initial encounter; V93.3 Fall on board watercraft; Y92.814 Boat as the place of occurrence of the external cause
CPT/HCPCS: 70450-TC; 70486-TC; 99284-25

== ENCOUNTER 2023-05-07 12:34 | Emergency (ER) | payer OTHER, BC ==
[2023-05-07 12:46] VITALS: RESP 18; BMI 32.4
[2023-05-07] MEDS ORDERED: ACETAMINOPHEN 325 MG TABLET (FP) PO ONE ×2 (13:14→16:50)
[2023-05-07] MEDS ORDERED: LIDOCAINE 5% TOPICAL PATCH TP ONE ×2 (13:15→17:30)
[2023-05-07] MEDS ORDERED: ACETAMINOPHEN 325 MG TABLET (FP) ONE ×2 (13:29→16:51)
[2023-05-07] MEDS ORDERED: LIDOCAINE 5% TOPICAL PATCH ONE ×2 (13:29→17:33)
[2023-05-07 18:06] VITALS: BP 133/81; PULSE 66; TEMP 97.8
[2023-05-07] MEDS ORDERED: LIDOCAINE PATCH REMOVAL MC ONE (22:00)
[2023-05-07] MEDS ORDERED: LIDOCAINE PATCH REMOVAL MC SCH (22:00)
== END 2023-05-07 17:45 | disposition home or self-care (01) ==
LOC: FER 12:34
DX: S32.008A Other fracture of unspecified lumbar vertebra, initial encounter for closed fracture (principal); S32.038A Other fracture of third lumbar vertebra, initial encounter for closed fracture; M54.50 Low back pain, unspecified; W19.XXXD Unspecified fall, subsequent encounter; Y93.9 Activity, unspecified; Y92.9 Unspecified place or not applicable
CPT/HCPCS: 72100-TC-FY; 72148-TC; 99284-25